=== PATIENT | female | born 1975 | race Caucasian/White ===

== ENCOUNTER 2016-10-21 05:09 | Inpatient (IN) | payer OTHER ==
[~2016-10-21] VITALS: Ht 182.9 cm; Wt 109.4 kg
[~2016-10-21 05:09] MED LIST: CIPRO500 MG PO; IRON325 M1 PO; OMEPRAZOLE20 M2 PO; ULTRAM50 MG PO
[2016-10-21 05:40] VITALS: BP 129/89
[2016-10-21 15:01] VITALS: BP 136/87
[2016-10-21 20:24] VITALS: BP 114/73
[2016-10-21 23:40] VITALS: BP 128/55
[2016-10-22 03:43] VITALS: BP 111/64
[2016-10-22 06:40] LABS: HEMATOCRIT 31.6 % (36.0-46.0); MCH 32.2 PG (29.0-34.0); MCHC 35.1 G/DL (30.0-36.0); MCV 91.6 FL (83-99); MEAN PLAT.VOLUME 11.7 uM^3 (9.5-12.4); PLATELET COUNT 146 K/uL (156-360); RBC DIS.WIDTH-CV 12.5 % (11.8-14.6); RBC DIS.WIDTH-SD 41.2 % (39-53); WHITE BLOOD COUNT 5.7 K/uL (4.1-10.2)
[2016-10-22 06:41] LABS: RED BLOOD COUNT 3.45 M/uL (3.80-5.20)
[2016-10-22 08:42] VITALS: BP 113/72
[2016-10-22 16:17] VITALS: BP 149/85
[2016-10-22 16:31] LABS: HEMATOCRIT 34.6 % (36.0-46.0); MCH 31.3 PG (29.0-34.0); MCHC 34.4 G/DL (30.0-36.0); MCV 91.1 FL (83-99); MEAN PLAT.VOLUME 11.3 uM^3 (9.5-12.4); PLATELET COUNT 177 K/uL (156-360); RBC DIS.WIDTH-CV 12.3 % (11.8-14.6); WHITE BLOOD COUNT 6.4 K/uL (4.1-10.2)
[2016-10-22 19:15] VITALS: BP 117/74
[2016-10-22 23:25] VITALS: BP 126/87
[2016-10-23 03:22] VITALS: BP 112/67
[2016-10-23 07:30] VITALS: BP 113/74
[2016-10-23] MEDS ORDERED: IBUPROFEN800 MG PO (07:50)
[2016-10-23] MEDS ORDERED: MYLICON,MYLANTA80 MG PO (07:51)
[2016-10-23] MEDS ORDERED: ENDOCET 5-3251 EACH PO (07:53)
[2016-10-23] MEDS ORDERED: REGLAN10 MG PO (07:53)
== END 2016-10-23 10:05 | disposition home or self-care (01) | DRG 742 ==
LOC: SDC 05:09 → 2EAST 11:43 → 2SOUTH 11:43 → 2EAST 14:59 → SDC 15:41 → 2EAST 10-23 10:05
PROVIDERS: Obstetrics & Gynecology
DX: N80.0 Endometriosis of uterus (principal); N70.11 Chronic salpingitis; N94.6 Dysmenorrhea, unspecified; N99.71 Accidental puncture and laceration of a genitourinary system organ or structure during a genitourinary system procedure; Y65.8 Other specified misadventures during surgical and medical care; Y92.234 Operating room of hospital as the place of occurrence of the external cause; Z53.31 Laparoscopic surgical procedure converted to open procedure; E66.3 Overweight; Z68.29 Body mass index [BMI] 29.0-29.9, adult; Z87.891 Personal history of nicotine dependence
CPT/HCPCS: 85027; 88307; J0131; J0330; J0690; J1100; J1170; J2250; J2405; J2710; J2765; J3010; J7120